=== PATIENT | male | born 1970 ===

== ENCOUNTER 2019-07-15 14:51 | Emergency (ER) | payer SELFPAY ==
[2019-07-15 15:00] VITALS: BP 200/103
--- NOTE | 2019-07-15 15:00 | Event Note ---
ED Screening Note Date of service: 07/15/19 Time: 14:58 ED Screening Note: 49 y/o male comes in for elevated BP of 200/103. No symptoms. This initial assessment/diagnostic orders/clinical plan/treatment(s) is/are subject to change based on patients health status, clinical progression and re- assessment by fellow clinical providers in the ED. Further treatment and workup at subsequent clinical providers discretion. Patient/guardian urged not to elope from the ED as their condition may be serious if not clinically assessed and managed. Initial orders include:
[2019-07-15] MEDS ORDERED: cloNIDine 0.2 MG TAB PO ONE (15:25)
--- NOTE | 2019-07-15 15:25 | Emergency Department Report ---
ED General Adult HPI - General Chief complaint: Medical Clearance Stated complaint: BLOOD PRESSURE Time Seen by Provider: 07/15/19 14:56 Source: patient Mode of arrival: Ambulatory Limitations: No Limitations - History of Present Illness Initial comments: Patient is a 49-year-old -[place] male who comes to the ER with hypertension. He has no chest pain, shortness of breath or headache. His blood pressure was found elevated during a [employer] physical. He came to the ER to get checked. Patient has no history of hypertension. He has no medical problems. No prior surgeries. He denies alcohol cigarettes or drugs. Patient states that he lost his mother about a month ago. Patient has no primary care doctor. Associated Symptoms: denies other symptoms - Related Data Previous Rx's Medication Instructions Recorded Last Taken Type hydroCHLOROthiazide [HCTZ] 25 mg PO QDAY #30 tablet 07/15/19 Unknown Rx ED Review of Systems ROS: Stated complaint: BLOOD PRESSURE Other details as noted in HPI Comment: All other systems reviewed and negative ED Past Medical Hx - Past Medical History Previous Medical History?: No - Surgical History Past Surgical History?: No - Family History Family history: no significant - Social History Smoking Status: Never Smoker Substance Use Type: None - Medications Home Medications: Home Medications Medication Instructions Recorded Confirmed Last Taken Type hydroCHLOROthiazide [HCTZ] 25 mg PO QDAY #30 tablet 07/15/19 Unknown Rx ED Physical Exam - General Limitations: No Limitations General appearance: alert, in no apparent distress - Head Head exam: Present: atraumatic, normocephalic - Eye Eye exam: Present: normal appearance - ENT ENT exam: Present: mucous membranes moist - Neck Neck exam: Present: normal inspection - Respiratory Respiratory exam: Present: normal lung sounds bilaterally. Absent: respiratory distress - Cardiovascular Cardiovascular Exam: Present: regular rate, normal rhythm. Absent: systolic murmur, diastolic murmur, rubs, gallop - GI/Abdominal GI/Abdominal exam: Present: soft, normal bowel sounds - Rectal Rectal exam: Present: deferred - Extremities Exam Extremities exam: Present: normal inspection - Back Exam Back exam: Present: normal inspection - Neurological Exam Neurological exam: Present: alert, oriented X3 - Psychiatric Psychiatric exam: Present: normal affect, normal mood - Skin Skin exam: Present: warm, dry, intact, normal color. Absent: rash ED Course Vital Signs 07/15/19 07/15/19 14:58 15:34 Temperature 97.6 F Pulse Rate 84 84 Respiratory 16 Rate Blood Pressure 200/103 200/103 O2 Sat by Pulse 98 Oximetry ED Medical Decision Making - Lab Data Result diagrams: 07/15/19 15:43 07/15/19 15:43 - Medical Decision Making Lab Results 07/15/19 07/15/19 Range/Units 15:43 15:43 WBC 5.5 (4.5-11.0) K/mm3 RBC 5.45 H (3.65-5.03) M/mm3 Hgb 15.0 (11.8-15.2) gm/dl Hct 44.8 (35.5-45.6) % MCV 82 L (84-94) fl MCH 28 (28-32) pg MCHC 33 (32-34) % RDW 13.6 (13.2-15.2) % Plt Count 244 (140-440) K/mm3 Lymph % (Auto) 44.6 H (13.4-35.0) % Benson % (Auto) 10.1 H (0.0-7.3) % Eos % (Auto) 3.9 (0.0-4.3) % Baso % (Auto) 0.2 (0.0-1.8) % Lymph # 2.5 (1.2-5.4) K/mm3 Benson # 0.6 (0.0-0.8) K/mm3 Eos # 0.2 (0.0-0.4) K/mm3 Baso # 0.0 (0.0-0.1) K/mm3 Seg Neutrophils % 41.2 (40.0-70.0) % Seg Neutrophils # 2.3 (1.8-7.7) K/mm3 Sodium 139 (137-145) mmol/L Potassium 4.1 (3.6-5.0) mmol/L Chloride 98.4 (98-107) mmol/L Carbon Dioxide 26 (22-30) mmol/L Anion Gap 19 mmol/L BUN 16 (9-20) mg/dL Creatinine 1.1 (0.8-1.5) mg/dL Estimated GFR > 60 ml/min BUN/Creatinine Ratio 15 % Glucose 93 (75-100) mg/dL Calcium 9.9 (8.4-10.2) mg/dL Vital Signs 07/15/19 07/15/19 14:58 15:34 Temperature 97.6 F Pulse Rate 84 84 Respiratory 16 Rate Blood Pressure 200/103 200/103 O2 Sat by Pulse 98 Oximetry Labs noted. Patient has no chest pain, shortness of breath or headache. Blood pressure was elevated in the ER. He was given clonidine. Patient has been educated on first-line management of hypertension. This includes diet, activity, and salt intake. Patient is being discharged home with PCP follow-up. He is going home on HCTZ and has been instructed to keep a blood pressure log. Patient verbalizes understanding of when to return to the ER. - Differential Diagnosis htn ro end organ disease Critical care attestation.: If time is entered above; I have spent that time in minutes in the direct care of this critically ill patient, excluding procedure time. ED Disposition Clinical Impression: Elevated blood pressure reading Disposition: - TO HOME OR SELFCARE Is pt being admited?: No Does the pt Need Aspirin: No Condition: Stable Instructions: DASH Eating Plan (ED), Low Sodium Diet (ED), Hypertension (ED) Additional Instructions: SEE ATTACHED INFO ON DIET LOW FAT LOW SALT NO FAST FOOD NO ALCOHOL WORK ON GETTING WEIGHT TO NORMAL LEVEL HYDRATE WELL WITH WATER WALK DAILY FOLLOW UP WITH PCP REFERRAL BELOW MED ORDERED TODAY YOU SHOULD TAKE BP ONCE PER DAY IN THE SAME ARM, AT THE SAME TIME OF DAY AND LOG IT - TAKE THIS TO PCP WITH YOU SO HE CAN EVALUATE WHAT MEDS NEED TO BE GIVEN Prescriptions: hydroCHLOROthiazide [HCTZ] 25 mg PO QDAY #30 tablet Referrals: JIGNESH VERDUGO MD [Staff Physician] - 3-5 Days Time of Disposition: 15:25
[2019-07-15 16:10] LABS: Basophils % (Auto) 0.2 % (0.0-1.8); Eosinophils # (Auto) 0.2 K/mm3 (0.0-0.4); Eosinophils % (Auto) 3.9 % (0.0-4.3); Hematocrit 44.8 % (35.5-45.6); Lymphocytes # (Auto) 2.5 K/mm3 (1.2-5.4); Lymphocytes % (Auto) 44.6 % (13.4-35.0); Mean Corpuscular HGB Conc 33 % (32-34); Mean Corpuscular Volume 82 fl (84-94); Monocytes # (Auto) 0.6 K/mm3 (0.0-0.8); Monocytes % (Auto) 10.1 % (0.0-7.3); Platelet Count 244 K/mm3 (140-440); Red Blood Count 5.45 M/mm3 (3.65-5.03); Red Cell Distribution Width 13.6 % (13.2-15.2)
[2019-07-15 16:34] LABS: BUN/Creatinine Ratio 15; Blood Urea Nitrogen 16 mg/dL (9-20); Calcium 9.9 mg/dL (8.4-10.2); Hemolysis Index 23
== END 2019-07-15 16:27 | disposition home or self-care (01) ==
LOC: ED 14:51
DX: R03.0 Elevated blood-pressure reading, without diagnosis of hypertension (principal); Z79.899 Other long term (current) drug therapy
CPT/HCPCS: 36415; 80048; 85025; 99283